=== PATIENT | female | born 1995 | race Caucasian/White ===

== ENCOUNTER → 2019-06-12 08:20 | Outpatient (CLI) | payer OTHER, SELFPAY ==
--- NOTE | ~2019-06-12 | CT_ITS ---
EXAMINATION: CT sinus wo con EXAM DATE: 06/12/2019 08:37 INDICATION: Acute recurrent pansinusitis. TECHNIQUE: Spiral CT of the sinuses was acquired in the axial plane. Coronal and sagittal reformatte d images were also reviewed. The dose-length product (DLP) for this examination was 275.58 mGy-cm. Iterative reconstruction (ASIR) was used as dose reduction technique. There is no prior study for co mparison. FINDINGS: The sinuses are normally developed. The sinuses are well aerated. The ostiomeatal unit s are patent. There is no sinus wall thickening. There is mild nasal septal deviation. The mas toid air cells and middle ears are well aerated. External auditory canals are patent. The orbits and visualized soft tissues are unremarkable. IMPRESSION: Mild nasal septal deviation. Clear sinuses. Reviewed, dictated and finalized at location B. [employer]
== END ==
PROVIDERS: Visit Provider Otolaryngology
DX: J01.41 Acute recurrent pansinusitis (principal); J34.2 Deviated nasal septum
CPT/HCPCS: 70486

== ENCOUNTER 2021-06-01 17:34 | Outpatient (CLI) | payer OTHER, SELFPAY | END 2021-06-01 17:35 | disposition home or self-care (01) | LOC: ANHLAB 17:36 | PROVIDERS: PCP Internal Medicine; Visit Provider Nurse Practitioner | DX: J02.9 Acute pharyngitis, unspecified (principal) | CPT/HCPCS: 87081; 87880 ==